=== PATIENT | female | born 1970 ===

== ENCOUNTER 2020-09-02 05:40 | Day surgery (SDC) | payer OTHER ==
[2020-09-02] MEDS ORDERED: MORGIDOX100 MG PO (08:48)
[2020-09-02] MEDS ORDERED: NAPR500T14 PO (08:48)
== END 2020-09-02 13:00 | disposition home or self-care (01) ==
LOC: CIR.AMB 05:40
PROVIDERS: ATTEND Obstetrics & Gynecology
DX: D25.0 Submucous leiomyoma of uterus (principal); N84.0 Polyp of corpus uteri; Z20.822 Contact with and (suspected) exposure to COVID-19

== ENCOUNTER 2024-06-26 05:00 | Day surgery (SDC) | payer OTHER ==
[2024-06-18 10:48] LABS: URINE APPEARANCE Clear; URINE BILIRRUBIN Negative (NEGATIVE); URINE BLOOD Negative; URINE COLOR Yellow; URINE GLUCOSE Negative (NEGATIVE); URINE KETONE Negative (NEGATIVE); URINE LEUKOCYTE Negative; URINE NITRATE Negative; URINE PROTEIN Negative (NEGATIVE); URINE UROBILINOGEN 0.2 E.U./dl
[2024-06-18 10:52] LABS: URINE BACTERIA 173.7 uL (0.0-1933); URINE EPITHELIAL CELLS 19.6 uL (0.0-38.8); URINE RBC 10.3 uL (0.0-20.8); URINE WBC 3.4 uL (0.0-23.2)
[2024-06-18 10:53] VITALS: BP 120/82
[2024-06-18 11:07] LABS: HEMATOCRIT 38.4 % (36.0-45.00); HEMOGLOBIN 12.1 g/dL (12.0-15.00); MEAN CELL VOLUME 77.8 fL (80.00-100.00); MEAN CORPUSCULAR HEMOGLOBIN 24.5 pg (27.00-32.0); MEAN CORPUSCULAR HGB CONC 31.6 g/dl (32.0-36.0); PLATELET COUNT 232 K/uL (150-450); RED BLOOD COUNT 4.94 M/uL (4.00-6.00); RED CELL DISTRIBUTION WIDTH 17.8 % (11.5-14.5)
[2024-06-18 11:19] LABS: INR 0.97; PARTIAL THROMBOPLASTIN TIME 27.1 SECONDS (22.0-34.0); PROTHROMBIN TIME 10.6 SECONDS (9.0-11.5)
[2024-06-18 11:53] LABS: ALBUMIN 3.7 gm/dL (3.4-5.0); BILIRUBIN TOTAL 0.44 mg/dL (0.3-1.2); CALCIUM 9.6 mg/dL (8.5-10.1); CREATININE SERUM 0.87 mg/dL (0.55-1.02); GFR 67.6; GLOBULINA 3.8 G/DL (2.4-3.5); POTASSIUM 4.3 mEq/L (3.5-5.1); TOTAL PROTEIN 7.5 gm/dL (6.4-8.2)
[2024-06-18 20:14] LABS: TSH 2.92 uIU/mL (0.358-3.74)
[~2024-06-26] VITALS: Ht 170.2 cm; Wt 104.3 kg
[~2024-06-26 05:00] MED LIST: MORGIDOX100 MG PO; NAPR500T14 PO; SINGULAIR10 MG PO
[2024-06-26] MEDS ORDERED: POVIDONE-IODINE 118 ML BOTT TOP ONE ×2 (07:04→08:00)
[2024-06-26] MEDS ORDERED: CEFOXITIN SODIUM 2,000 MG VIAL IV ONE ×2 (07:05→08:00)
[2024-06-26] MEDS ORDERED: CHLORHEXIDINE GLUCONATE 120 ML BOTTLE TOP ONE ×2 (08:17→08:45)
[2024-06-26] MEDS ORDERED: NAPR500T14 PO (08:52)
[2024-06-26] MEDS ORDERED: MONODOX100 MG PO (08:52)
[2024-06-26] MEDS ORDERED: PROMETHAZINE HCL 50 MG/ML AMPUL IM ONE (10:00)
[2024-06-26] MEDS ORDERED: MORPHINE SULFATE 4 MG/ML VIAL IV PRN (10:00)
== END 2024-06-26 12:20 | disposition home or self-care (01) ==
LOC: CIR.AMB 05:00
PROVIDERS: ATTEND Obstetrics & Gynecology
DX: D25.0 Submucous leiomyoma of uterus (principal); N84.0 Polyp of corpus uteri; N95.0 Postmenopausal bleeding; J45.909 Unspecified asthma, uncomplicated